=== PATIENT | female | born 1980 | race Caucasian/White ===

== ENCOUNTER → 2023-11-02 13:43 | Outpatient (REF) | payer BC, SELFPAY | LOC: MRI 3T 13:43 | PROVIDERS: ATTENDING PHYSICIAN Obstetrics & Gynecology; FAMILY PHYSICIAN Internal Medicine | DX: N83.201 Unspecified ovarian cyst, right side (principal) | CPT/HCPCS: 72197; A9575 ==

== ENCOUNTER → 2024-01-28 12:14 | Outpatient (REF) | payer BC, SELFPAY | LOC: MRI 3T 12:14 | PROVIDERS: ATTENDING PHYSICIAN Obstetrics & Gynecology; FAMILY PHYSICIAN Internal Medicine | DX: R10.2 Pelvic and perineal pain (principal) | CPT/HCPCS: 72197; A9575 ==

== ENCOUNTER → 2024-07-06 17:32 | Outpatient (REF) | payer BC, SELFPAY | LOC: MRI 3T 17:32 | PROVIDERS: ATTENDING PHYSICIAN Obstetrics & Gynecology; FAMILY PHYSICIAN Internal Medicine | DX: R10.2 Pelvic and perineal pain (principal) | CPT/HCPCS: 72197; A9575 ==

== ENCOUNTER → 2025-01-19 11:37 | Outpatient (REF) | payer BC, SELFPAY | LOC: HWWDC 11:37 | PROVIDERS: ATTENDING PHYSICIAN Obstetrics & Gynecology; FAMILY PHYSICIAN Internal Medicine | DX: Z12.31 Encounter for screening mammogram for malignant neoplasm of breast (principal) | CPT/HCPCS: 77063; 77067 ==

== ENCOUNTER → 2025-02-02 08:41 | Outpatient (REF) | payer BC, SELFPAY | LOC: MRI 08:41 | PROVIDERS: ATTENDING PHYSICIAN Obstetrics & Gynecology; FAMILY PHYSICIAN Internal Medicine | DX: R10.2 Pelvic and perineal pain (principal) | CPT/HCPCS: 72197; A9575 ==